=== PATIENT | female | born 1995 | race Two or more races ===

== ENCOUNTER 2024-07-19 12:10 | Emergency (ER) | payer OTHER ==
[~2024-07-19] VITALS: Ht 157.5 cm; Wt 49.9 kg
[2024-07-19] MEDS ORDERED: FAMOtidine 10 MG/ML (4ML VIAL) IV ONE (12:45)
[2024-07-19] MEDS ORDERED: 0.9 % SODIUM CHLORIDE 1,000 ML IV ONE (12:45)
[2024-07-19] MEDS ORDERED: ONDANSETRON HCL 2 MG/ML VIAL IV ONE (12:45)
[2024-07-19] MEDS ORDERED: FAMOTIDINE/PF 20 MG/2 ML VIAL ONE (13:07)
[2024-07-19] MEDS ORDERED: ONDANSETRON HCL 2 MG/ML VIAL ONE (13:07)
[2024-07-19 13:36] LABS: HEMATOCRIT 36.4 % (36.0-45.00); HEMOGLOBIN 12.3 g/dL (12.0-15.00); MEAN CORPUSCULAR HEMOGLOBIN 28.4 pg (27.00-32.0); MEAN CORPUSCULAR HGB CONC 33.8 g/dl (32.0-36.0); PLATELET COUNT 208 K/uL (150-450); RED BLOOD COUNT 4.33 M/uL (4.00-6.00); RED CELL DISTRIBUTION WIDTH 13.4 % (11.5-14.5)
[2024-07-19 14:06] LABS: ALBUMIN 4.2 gm/dL (3.4-5.0); ALKALINE PHOSPHATASE 117 U/L (50-136); ALT/SGPT 21 U/L (12-78); AMYLASE 70 U/L (25-115); ANION GAP 10 (10.0-20.0); AST/SGOT 22 U/L (15-37); BILIRUBIN TOTAL 0.53 mg/dL (0.3-1.2); BLOOD UREA NITROGEN 13 mg/dL (7-18); BUN CREA RATIO 21 (7.0-25.0); CALCIUM 9.1 mg/dL (8.5-10.1); CARBON DIOXIDE 25 mEq/L (21-32); CHLORIDE 111 mmol/L (98-107); CREATININE SERUM 0.61 mg/dL (0.55-1.02); GFR 117.65; GLOBULINA 3.8 G/DL (2.4-3.5); GLUCOSE FASTING 99 mg/dL (65-100); LIPASE 26 U/L (13-75); OSMOLALITY SERUM 283 MOSM/KG (275-295); POTASSIUM 4.14 mEq/L (3.5-5.1); SODIUM 142 mmol/L (136-145)
[2024-07-19 14:16] LABS: HCG QUANTITATIVE < 1 mUI/mL (1-3)
[2024-07-19 14:20] LABS: COVID-19 AG NEGATIVE (NEGATIVE); INFLUENZA A AG NEGATIVE (NEGATIVE)
[2024-07-19] MEDS ORDERED: PROMETHAZINE HCL 25 MG/ML AMPUL ONE (14:34)
[2024-07-19] MEDS ORDERED: PROMETHAZINE HCL 25 MG/ML AMPUL IM ONE (14:45)
[2024-07-19] MEDS ORDERED: PEPCID AC20 MG PO (15:13)
[2024-07-19] MEDS ORDERED: ZOFRAN8 MG PO (15:13)
== END 2024-07-19 15:21 | disposition home or self-care (01) ==
LOC: ER 12:10
PROVIDERS: General Practice
DX: J00 Acute nasopharyngitis [common cold] (principal); R11.2 Nausea with vomiting, unspecified; Z20.822 Contact with and (suspected) exposure to COVID-19